=== PATIENT | male | born 1990 | race Caucasian/White ===

== ENCOUNTER 2019-02-25 18:00 | Emergency (ER) | payer OTHER ==
[~2019-02-25] VITALS: Ht 175.3 cm; Wt 96.5 kg
[2019-02-25 18:33] VITALS: BP 117/67
--- NOTE | 2019-02-25 19:11 | NUR ---
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
[2019-02-25 20:10] LABS: BASOPHILS # (AUTO) 0.05 x10^3/uL (0-0.1); BASOPHILS % (AUTO) 1 % (0-1); EOSINOPHILS # (AUTO) 0.27 x10^3/uL (0-0.4); EOSINOPHILS % (AUTO) 3 % (1-7); LYMPHOCYTES # (AUTO) 4.75 x10^3/uL (1-3.4); LYMPHOCYTES % (AUTO) 45 % (22-44); MD NO; MEAN CORPUSCULAR HEMOGLOBIN 29.9 pg (27.5-34.5); MEAN CORPUSCULAR HGB CONC 33.7 g/dL (33.2-36.2); MEAN CORPUSCULAR VOLUME 88.7 fL (81-97); MEAN PLATELET VOLUME 7.1 fL (7.4-10.4); MONOCYTES # (AUTO) 0.72 x10^3/uL (0.2-0.8); MONOCYTES % (AUTO) 7 % (2-9); NEUTROPHILS # (AUTO) 4.89 x10^3/uL (1.8-6.8); NEUTROPHILS % (AUTO) 46 % (42-75); PLATELET COUNT 277 x10^3/uL (130-400); RED BLOOD COUNT 5.07 x10^6/uL (4.38-5.82)
[2019-02-25 20:18] LABS: ALBUMIN 4.3 g/dL (3.4-5.0); ANION GAP 6 mmol/L (5-15); CALCIUM 9.1 mg/dL (8.5-10.1); CHLORIDE 111 mmol/L (98-107); CREATININE 1.28 mg/dL (0.7-1.3)
[2019-02-25 20:21] LABS: SALICYLATE LEVEL < 1.7 mg/dL (2.8-20.0)
[2019-02-25 20:35] LABS: AMPHETAMINE SCREEN, URINE Negative (Negative); BARBITURATE SCREEN, URINE Negative (Negative); BENZODIAZEPINE SCREEN, URINE Negative (Negative); CANNABINOID SCREEN, URINE Negative (Negative); COCAINE SCREEN, URINE Negative (Negative); METHADONE SCREEN, URINE Negative (Negative); OPIATE SCREEN, URINE Negative (Negative)
--- NOTE | 2019-02-25 21:27 | NUR ---
PT BACK FROM CT SCAN ALL LABS ARE BACK AWAITING CT READ.
== END 2019-02-25 22:16 | disposition home or self-care (01) ==
LOC: ED 22:10
DX: R41.0 Disorientation, unspecified (principal); R20.2 Paresthesia of skin; F19.10 Other psychoactive substance abuse, uncomplicated; Z72.89 Other problems related to lifestyle
CPT/HCPCS: 36415; 70450; 80048; 80307; 82040; 82607; 85025; 93005; 99284